=== PATIENT | male | born 1960 | race Caucasian/White ===

== ENCOUNTER → 2022-01-23 08:17 | Outpatient (BNVA) | payer OTHER, SELFPAY | PROVIDERS: PCP Internal Medicine; Visit Provider Nurse Practitioner Family | DX: F07.81 Postconcussional syndrome (principal); G44.309 Post-traumatic headache, unspecified, not intractable | CPT/HCPCS: 99202 ==

== ENCOUNTER → 2022-03-20 15:20 | Outpatient (BNVA) | payer OTHER, SELFPAY | PROVIDERS: PCP Internal Medicine; Visit Provider Nurse Practitioner Family | DX: G44.309 Post-traumatic headache, unspecified, not intractable (principal); G43.009 Migraine without aura, not intractable, without status migrainosus; F07.81 Postconcussional syndrome | CPT/HCPCS: 99212 ==

== ENCOUNTER → 2022-06-10 15:18 | Outpatient (BNVA) | payer OTHER, SELFPAY | PROVIDERS: PCP Internal Medicine; Visit Provider Nurse Practitioner Family | DX: G44.309 Post-traumatic headache, unspecified, not intractable (principal); F07.81 Postconcussional syndrome; G43.009 Migraine without aura, not intractable, without status migrainosus; Z79.899 Other long term (current) drug therapy | CPT/HCPCS: 99212 ==

== ENCOUNTER 2022-10-06 08:01 | Outpatient (AMB) | payer OTHER, SELFPAY ==
--- NOTE | 2022-10-06 08:03 | A.OFFVIS_ITS ---
Intake Vital Signs 10/06/22 08:07 Weight 220 lb 8 oz BP 138/72 Blood Pressure Location Rt brachial Position Sitting Pulse 71 Pulse Source Pulse Oximeter Pulse Oximetry (%) 97 Oxygen Delivery Method Room Air Intake Visit Reasons: 4m follow up headaches - Confirmed Intake Note: F/U Headaches, also still has the dizzinezz Sound Designer Required: No Allergies acetaminophen [From Percocet] Allergy (Intermediate, Verified 10/06/22 08:04) Unknown penicillin V Allergy (Unknown, Verified 10/06/22 08:04) Unknown titanium Allergy (Unknown, Verified 10/06/22 08:04) Unknown oxycodone Adverse Reaction (Intermediate, Verified 10/06/22 08:04) Unknown Medication List - Last Reconciled 10/06/22 by MARY Gonzalez amitriptyline 25 mg PO BEDTIME 30 days atorvastatin 40 mg PO DAILY citalopram 20 mg PO DAILY hydroxyzine HCl 25 mg PO BEDTIME PRN levothyroxine 0 mcg PO losartan 50 mg PO DAILY ubrogepant (Ubrelvy) 50 - 100 mg (0.5 - 1 x 100 mg) PO ONCE PRN 30 days HPI HPI Comments History of Present Illness Details 62-yr-old male presents for f/u visit, accompanied by his . He reports he had a left eye laser surgery d/t worsening left vision- like a curtain closing in from the top and bottom. Then the following day, he completely lost his left vision. He then underwent emergent eye surgery for retinal detachment. He still has left eye bubble placement- states from the left eye vision is still off- like looking through a fun glass. He reports that he is struggling to cope with the changes in his life since the accident. He wonders when his PTSD and postconcussive s/s will resolve. He has been having some jerking limb movements when resting. He has difficulty being driven in the car- becomes anxious/nervous. He is not driving himself- d/t the left eye vision loss. His PT is on hold d/t the eye surgeries. The amitriptyline and ubrelvy is helpful for the headaches [facility] Medical History Anti-cardiolipin antibody positive Anxiety Ascending aorta dilation Depression Dysplastic nevus HLD (hyperlipidemia) Hypothyroidism Papillary thyroid carcinoma TIA (transient ischemic attack) Surgical History H/O eye surgery H/O knee surgery Hx of partial thyroidectomy Hx of repair of rotator cuff Family History Maternal Grandfather Colon cancer Social History (Updated 10/06/22 @ 08:07 by Dahiana Hernandez [facility]) Alcohol intake: current Alcohol intake frequency: 0-2 drinks per day Alcohol type: beer Patient Tobacco Use Status: Never used Tobacco Review of Systems Const All systems reviewed & are unremarkable except as noted in HPI and below Physical Exam Vital Signs: Last Vital Signs Pulse 71 10/06/22 08:07 BP 138/72 10/06/22 08:07 Pulse Ox 97 10/06/22 08:07 Oxygen Delivery Method Room Air 10/06/22 08:07 Const General: cooperative and no acute distress Orientation/consciousness: patient oriented x3 HEENT Head: Yes normocephalic Resp Effort & Inspection: normal respiratory effort and able to speak in complete sentences Neuro Other: Left lateral visual field deficit. Finger-nose (pt's finger to pt's nose)- BUE L > R dysmetria Finger-nose (provider finger to pt's nose)- some dififculty following instructions, left dysmetria. Photophobic. Anxious. Fidgetting bilateral hands, tapping bilateral legs. General: patient oriented x3 and gait normal Motor exam (neuro): 5/5 motor strength present throughout Psych Appearance: grossly normal Mental Status: mental status grossly normal Speech and movement: Clear speech present Attitude: cooperative Assessment & Plan Assessment & Plan (1) Postconcussive syndrome: Comment: headaches, dizziness, tinnitus, sleep difficulties, cognitive difficulties, mood changes. Code(s): F07.81 - Postconcussional syndrome (2) PTSD (post-traumatic stress disorder): Code(s): F43.10 - Post-traumatic stress disorder, unspecified (3) Headache, post-traumatic: Code(s): G44.309 - Post-traumatic headache, unspecified, not intractable (4) Migraine without aura: Comment: post-traumatic Code(s): G43.009 - Migraine without aura, not intractable, without status migrainosus (5) Vision loss, left eye: Code(s): H54.62 - Unqualified visual loss, left eye, normal vision right eye Plan For overall postconcussive headache management: Pt is advised to start psychotherapy- to help pt adjust to post-concussive syndrome, role transition, recent eye surgeries/vision loss. F/u w/ Dr Zhong as scheduled. F/u w/ ophthalmology as scheduled. For acute postconcussive headache treatment: May use prn Tylenol or NSAID. Continue Ubrelvy 100mg at onset of headache, may repeat in 2 hrs (max 200mg/day). May take w/ Tylenol 1000mg prn or Ibuprofen 400-600mg prn. Previous acute migraine medication trials: None Acute migraine medication contraindications: Triptans d/t HTN, post-op ? For postconcussive headache prevention medication: Continue Amitriptyline 25mg mg qhs. Previous migraine prevention medication trials: No other Migraine prevention medication contraindications: None f/u in 3 months or sooner prn. Orders: Referrals Psychology Referral F07.81 - Postconcussional syndrome, F43.10 - Post-traumatic stress disorder, unspecified Coding Level of Care Code Est Pt Level 4 (04739) Diagnoses Postconcussive syndrome F07.81 PTSD (post-traumatic stress disorder) F43.10 Headache, post-traumatic G44.309 Migraine without aura G43.009 Vision loss, left eye H54.62
[2022-10-06 08:07] VITALS: BP 138/72; PULSE 71; O2SAT 97
== END 2022-10-06 08:58 | disposition home or self-care (01) ==
PROVIDERS: Visit Provider Nurse Practitioner Family
DX: F43.10 Post-traumatic stress disorder, unspecified (principal); F07.81 Postconcussional syndrome; G44.309 Post-traumatic headache, unspecified, not intractable; H54.62 Unqualified visual loss, left eye, normal vision right eye
CPT/HCPCS: 99214

== ENCOUNTER → 2022-10-06 08:01 | Outpatient (BNVA) | payer OTHER, SELFPAY | PROVIDERS: Visit Provider Nurse Practitioner Family | DX: F07.81 Postconcussional syndrome (principal); F43.10 Post-traumatic stress disorder, unspecified; G44.309 Post-traumatic headache, unspecified, not intractable; G43.009 Migraine without aura, not intractable, without status migrainosus; H54.62 Unqualified visual loss, left eye, normal vision right eye; Z79.899 Other long term (current) drug therapy | CPT/HCPCS: 99212 ==

== ENCOUNTER 2023-01-18 13:51 | Outpatient (AMB) | payer OTHER, SELFPAY ==
--- NOTE | 2023-01-18 13:52 | MHC.OFFVIS ---
Intake Vital Signs 01/18/23 13:54 Height 5 ft 10 in Weight 214 lb BMI 30.7 BP 136/80 Blood Pressure Location Lt brachial Pulse 60 Pulse Source Pulse Oximeter Pulse Oximetry (%) 98 Oxygen Delivery Method Room Air Intake Visit Reasons: 3m follow up headaches/ LVM Allergies acetaminophen [From Percocet] Allergy (Intermediate, Verified 01/18/23 13:57) Unknown penicillin V Allergy (Unknown, Verified 01/18/23 13:57) Unknown titanium Allergy (Unknown, Verified 01/18/23 13:57) Unknown oxycodone Adverse Reaction (Intermediate, Verified 01/18/23 13:57) Unknown Medication List - Last Reconciled 01/18/23 by MARY Gonzalez amitriptyline 25 mg PO BEDTIME 30 days atorvastatin 40 mg PO DAILY citalopram 20 mg PO DAILY hydroxyzine HCl 25 mg PO BEDTIME PRN levothyroxine 0 mcg PO losartan 50 mg PO DAILY ubrogepant (Ubrelvy) 50 - 100 mg (0.5 - 1 x 100 mg) PO ONCE PRN 30 days HPI HPI Comments History of Present Illness Details 62-yr-old male presents for f/u visit, accompanied by his . He has had a lumbar injection in early Dec- w/ Dr Zhong, which has been helpful for low back pain radiating into anterior LLE. He is doing PT. Having to manage his vision issues with his PT exercises- He can still feel a bit of dizziness if he bends over and gets back up quickly. He states that the headaches now occur at different times of the day- now can wake up with a headache. He has a migraine headache almost every day- in varying intensities. He is taking Amitriptyline every day- makes him groggy in the am. The Ubrelvy helps but makes him a bit sleepy. Denies history of constipation. He can be dizzy and lightheaded. He states Dr Ng has told him that his left eye vision loss is permanent. He is driving short distances- mostly on local roads. However he cannot drive longer distances, and when he is a passenger in the car, he has increased anxiety. [facility] Medical History Anti-cardiolipin antibody positive Dysplastic nevus Anxiety Papillary thyroid carcinoma Hypothyroidism Ascending aorta dilation TIA (transient ischemic attack) HLD (hyperlipidemia) Depression Surgical History H/O eye surgery Hx of repair of rotator cuff H/O knee surgery Hx of partial thyroidectomy Family History Maternal Grandfather Colon cancer Social History Alcohol intake: current Alcohol intake frequency: 0-2 drinks per day Alcohol type: beer Patient Tobacco Use Status: Never used Tobacco Review of Systems Const All systems reviewed & are unremarkable except as noted in HPI and below Physical Exam Vital Signs: Last Vital Signs Pulse 60 01/18/23 13:54 BP 136/80 01/18/23 13:54 Pulse Ox 98 01/18/23 13:54 Oxygen Delivery Method Room Air 01/18/23 13:54 BMI result Body Mass Index 30.7 Const General: cooperative and no acute distress Orientation/consciousness: patient oriented x3 HEENT Head: Yes normocephalic Resp Effort & Inspection: normal respiratory effort and able to speak in complete sentences Neuro Other: Left eye visual loss General: patient oriented x3 and gait normal Cognition (Neuro): normal cognition Motor exam (neuro): 5/5 motor strength present throughout Psych Appearance: grossly normal Mental Status: mental status grossly normal Speech and movement: Normal speech and movement present Affect: Anxious affect present Attitude: cooperative Thought process: Normal thought process present Thought content: Normal thought content present Insight: Good insight present (Psych) Judgement: Good judgement present (Psych) Assessment & Plan Assessment & Plan (1) Postconcussive syndrome: Comment: headaches, dizziness, tinnitus, sleep difficulties, cognitive difficulties, mood changes. Code(s): F07.81 - Postconcussional syndrome (2) Headache, post-traumatic: Code(s): G44.309 - Post-traumatic headache, unspecified, not intractable (3) Migraine without aura: Comment: post-traumatic Code(s): G43.009 - Migraine without aura, not intractable, without status migrainosus (4) PTSD (post-traumatic stress disorder): Code(s): F43.10 - Post-traumatic stress disorder, unspecified (5) Vision loss, left eye: Code(s): H54.62 - Unqualified visual loss, left eye, normal vision right eye Plan For overall postconcussion management: Will f/u on referral for psychotherapy- to help pt adjust to post-concussive syndrome, role transition, vision loss. Trial low dose Lorazapam 0.5mg tab- 1/2 - 1 tab bid prn anxiety, especially when he needs to be a passenger in a car for longer distances. F/u w/ Dr Zhong as scheduled. F/u w/ ophthalmology as scheduled. ? For acute postconcussive headache treatment: May use prn Tylenol or NSAID. Continue Ubrelvy 100mg at onset of headache, may repeat in 2 hrs (max 200mg/day). May take w/ Tylenol 1000mg prn or Ibuprofen 400-600mg prn. Previous acute migraine medication trials: None Acute migraine medication contraindications: Triptans d/t HTN, post-op ? For postconcussive headache prevention medication: Continue Amitriptyline 25mg mg qhs. Start Aimovig 140mg sc q month- to alleviate daily attacks. Previous migraine prevention medication trials: No other Migraine prevention medication contraindications: BBs as pt is already on Losartan and normotensive w/ episodes of dizziness and lightheadedness. ? f/u in 3 months or sooner prn. Medications: New lorazepam 0.25 - 0.5 mg (0.5 - 1 x 0.5 mg) PO BID PRN 15 tabs 1RF anxiety 30 days erenumab-aooe (Aimovig Autoinjector) 140 mg subcut ONCE 1 mL 6RF 30 days Coding Level of Care Code Est Pt Level 4 (86965) Diagnoses Postconcussive syndrome F07.81 Headache, post-traumatic G44.309 Migraine without aura G43.009 PTSD (post-traumatic stress disorder) F43.10 Vision loss, left eye H54.62
[2023-01-18 13:54] VITALS: BP 136/80; PULSE 60; O2SAT 98; BMI 30.7
== END 2023-01-18 15:02 | disposition home or self-care (01) ==
PROVIDERS: PCP Internal Medicine; Visit Provider Nurse Practitioner Family
DX: H54.62 Unqualified visual loss, left eye, normal vision right eye (principal); F43.10 Post-traumatic stress disorder, unspecified; F07.81 Postconcussional syndrome; G44.309 Post-traumatic headache, unspecified, not intractable
CPT/HCPCS: 99214

== ENCOUNTER → 2023-01-18 13:51 | Outpatient (BNVA) | payer OTHER, SELFPAY | PROVIDERS: PCP Internal Medicine; Visit Provider Nurse Practitioner Family | DX: F07.81 Postconcussional syndrome (principal); G44.309 Post-traumatic headache, unspecified, not intractable; G43.009 Migraine without aura, not intractable, without status migrainosus; F43.10 Post-traumatic stress disorder, unspecified; H54.62 Unqualified visual loss, left eye, normal vision right eye; Z79.899 Other long term (current) drug therapy | CPT/HCPCS: 99212 ==

== ENCOUNTER 2023-04-22 08:05 | Outpatient (AMB) | payer OTHER, SELFPAY ==
--- NOTE | 2023-04-22 08:24 | A.OFFVIS_ITS ---
Intake Vital Signs 04/22/23 08:29 Height 5 ft 10 in BP 140/82 H Blood Pressure Location Rt brachial Position Sitting Pulse 80 Pulse Source Pulse Oximeter Pulse Oximetry (%) 98 Oxygen Delivery Method Room Air Intake Visit Reasons: 3 mo f/u -Headaches-LVM Intake Note: Patient presents for headaches,dizziness and PTSD. Patient feeling the same no changes. Allergies acetaminophen [From Percocet] Allergy (Intermediate, Verified 04/22/23 08:29) Unknown penicillin V Allergy (Unknown, Verified 04/22/23 08:29) Unknown titanium Allergy (Unknown, Verified 04/22/23 08:29) Unknown oxycodone Adverse Reaction (Intermediate, Verified 04/22/23 08:29) Unknown HPI HPI Comments History of Present Illness Details 62-yr-old male presents for f/u visit. Pt reports he underwent another left eye surgery (his 5th one)- in hopes it would help w/ his depth perception difficulties and left lateral visual field distortion/loss. He was given glasses are not helping his left eye symptoms at all, but is helping with his right eye vision- though still has the post-injury right eye floater. He is using the prn Lorazepam when in the car- helps some. This is all still frustrating. He has not seen psychologist yet- he is unaware who his work comp will cover. The previous lumbar injection was helpful for LLE pain and left knee giving out, however his hips are misaligned and low back can be sore. He was advised to try a small SI belt which he feels is helping. He is scheduled for an echocardiogram d/t recent abnormal EKG done for having episodes of thumping/heart heart beat. He is f/b Dr [facility] site. Last week, he had a chest cold. The coughing caused transient room spinning dizziness. The dizziness has resolved since the cold resolved. The coughing also triggered a quick sharp, cold running pain in the back of his head- this also stopped when the cold stopped. He is waking up 2-3 times a night. His tinnitus makes it hard to fall asleep. Can be tired during the day, takes an afternoon nap. Having daily headache and dizziness/lightheadedness. He uses Ubrelvy 1/2 tab and Tylenol- which helped for more bothersome headaches. Using Amitriptyline 25mg qhs. Has not started Aimovig - was not covered. Taking Cannabis gummies qhs for sleep. Baseline headache characteristics: Severe, Left frontal pounding pain, a/w nausea, activity intolerance, sounds of a lawnmower/jet in his head, feels needles piercing in left neck and back of left side of head. No focal weakness. [facility] Medical History Anti-cardiolipin antibody positive Dysplastic nevus Anxiety Papillary thyroid carcinoma Hypothyroidism Ascending aorta dilation TIA (transient ischemic attack) HLD (hyperlipidemia) Depression Surgical History H/O eye surgery Hx of repair of rotator cuff H/O knee surgery Hx of partial thyroidectomy Family History Maternal Grandfather Colon cancer Social History Alcohol intake: current Alcohol intake frequency: 0-2 drinks per day Alcohol type: beer Patient Tobacco Use Status: Never used Tobacco Physical Exam Vital Signs: Last Vital Signs Pulse 80 04/22/23 08:29 BP 140/82 H 04/22/23 08:29 Pulse Ox 98 04/22/23 08:29 Oxygen Delivery Method Room Air 04/22/23 08:29 Const General: cooperative and no acute distress Orientation/consciousness: patient oriented x3 Resp Effort & Inspection: normal respiratory effort and able to speak in complete sentences Neuro Other: Left eye visual loss General: patient oriented x3 Cranial nerves: Yes CN's II-XII intact bilaterally Cognition (Neuro): normal cognition Psych Appearance: grossly normal Mental Status: mental status grossly normal Speech and movement: Normal speech and movement present Affect: Anxious affect present Attitude: cooperative Assessment & Plan Assessment & Plan (1) Postconcussive syndrome: Comment: headaches, dizziness, tinnitus, sleep difficulties, cognitive difficulties, mood changes. Code(s): F07.81 - Postconcussional syndrome (2) Headache, post-traumatic: Code(s): G44.309 - Post-traumatic headache, unspecified, not intractable (3) Migraine without aura: Comment: post-traumatic Code(s): G43.009 - Migraine without aura, not intractable, without status migrainosus (4) PTSD (post-traumatic stress disorder): Code(s): F43.10 - Post-traumatic stress disorder, unspecified (5) Vision loss, left eye: Code(s): H54.62 - Unqualified visual loss, left eye, normal vision right eye Plan Will reach out to Dr Acevedo- ? if pt would be a candidate for vestibular/eye tx either through a PT who specializes in vestibular tx or television schedule coordinator- such as [facility]. For overall postconcussion management: Will f/u on referral for psychotherapy- to help pt adjust to post-concussive syndrome, role transition, vision loss. Trial low dose Lorazapam 0.5mg tab- 1/2 - 1 tab bid prn anxiety, especially when he needs to be a passenger in a car for longer distances. F/u w/ Dr Zhong as scheduled. F/u w/ ophthalmology as scheduled. ? For acute postconcussive headache treatment: May use prn Tylenol or NSAID. Continue Ubrelvy 100mg at onset of headache, may repeat in 2 hrs (max 200mg/day). May take w/ Tylenol 1000mg prn or Ibuprofen 400-600mg prn. Previous acute migraine medication trials: None Acute migraine medication contraindications: Triptans d/t HTN, post-op ? For postconcussive migraine headache prevention medication: Continue Amitriptyline 25mg mg qhs. Again start Aimovig 140mg sc q month- to alleviate daily attacks- will f/u on this. Previous migraine prevention medication trials: No other Migraine prevention medication contraindications: BBs as pt is already on Losartan and normotensive w/ episodes of dizziness and lightheadedness. ? f/u in 3 months or sooner prn. Coding Level of Care Code Est Pt Level 4 (98137) Diagnoses Postconcussive syndrome F07.81 Headache, post-traumatic G44.309 Migraine without aura G43.009 PTSD (post-traumatic stress disorder) F43.10 Vision loss, left eye H54.62
[2023-04-22 08:29] VITALS: BP 140/82; PULSE 80; O2SAT 98
== END 2023-04-22 09:45 | disposition home or self-care (01) ==
PROVIDERS: PCP Internal Medicine; Visit Provider Nurse Practitioner Family
DX: F07.81 Postconcussional syndrome (principal); G44.309 Post-traumatic headache, unspecified, not intractable; F43.10 Post-traumatic stress disorder, unspecified; H54.62 Unqualified visual loss, left eye, normal vision right eye
CPT/HCPCS: 99214

== ENCOUNTER → 2023-04-22 08:05 | Outpatient (BNVA) | payer OTHER, SELFPAY | PROVIDERS: PCP Internal Medicine; Visit Provider Nurse Practitioner Family | DX: F07.81 Postconcussional syndrome (principal); G44.309 Post-traumatic headache, unspecified, not intractable; G43.009 Migraine without aura, not intractable, without status migrainosus; F43.10 Post-traumatic stress disorder, unspecified; H54.62 Unqualified visual loss, left eye, normal vision right eye; Z79.899 Other long term (current) drug therapy | CPT/HCPCS: 99212 ==

== ENCOUNTER 2023-08-18 10:53 | Outpatient (AMB) | payer OTHER, SELFPAY ==
--- NOTE | 2023-08-18 10:55 | MHC.OFFVIS ---
Vital Signs 08/18/23 11:02 Height 5 ft 10 in Weight 213 lb 8 oz BMI 30.6 BP 134/80 Blood Pressure Location Rt brachial Position Sitting Pulse 66 Pulse Source Pulse Oximeter Pulse Oximetry (%) 95 Oxygen Delivery Method Room Air Intake Visit Reasons: 3 mo f/u -Headaches-LVM Intake Note: Patient presents for 3 months f/u. still getting headaches and dizziness Allergies acetaminophen [From Percocet] Allergy (Intermediate, Verified 04/22/23 08:29) Unknown penicillin V Allergy (Unknown, Verified 04/22/23 08:29) Unknown titanium Allergy (Unknown, Verified 04/22/23 08:29) Unknown oxycodone Adverse Reaction (Intermediate, Verified 04/22/23 08:29) Unknown HPI Comments Details: 63-yr-old male presents for f/u visit. Pt denies any significant interval medical changes. Pt reports he was trying to read more on his computer- however this triggers a headache- like little spikes in his right bahai f/b dizziness. He will have a headache if he stands up too quick, he will have headache and dizziness. He is not having the middle of the night headaches as much. Ubrelvy is still helpful- uses prn. Work comp did not approve Aimovig. He did see his eye doctor, was given readers, which helps. However, he still finds he is only able to read online for about 10 minutes before a headache is triggered. A book is easier to read. Reading overall makes him feel tired/sluggish. His life science research assistant is going to try to adjust his thyroid med to see if that helps. He is still using the SI belt which is helping his back pain. Still has difficulty w/ depth perception when walking on uneven or rough surfaces. He notices that he is not as sharp - finds that he is misspelling and that his math skills are worse. He is trying to read more about strategies to optimize his PTSD s/s- trying to walk away when irritated. Sometimes when he is laying down at night, he will feel a body jolt. He did have a full cardiac work-up earlier this year- which was normal. [facility] Medical History Anti-cardiolipin antibody positive Dysplastic nevus Anxiety Papillary thyroid carcinoma Hypothyroidism Ascending aorta dilation TIA (transient ischemic attack) HLD (hyperlipidemia) Depression Surgical History H/O eye surgery Hx of repair of rotator cuff H/O knee surgery Hx of partial thyroidectomy Family History Maternal Grandfather Colon cancer Social History Alcohol intake: current Alcohol intake frequency: 0-2 drinks per day Alcohol type: beer Patient Tobacco Use Status: Never used Tobacco Physical Exam Vital Signs: Last Vital Signs Pulse 66 08/18/23 11:02 BP 134/80 08/18/23 11:02 Pulse Ox 95 08/18/23 11:02 Oxygen Delivery Method Room Air 08/18/23 11:02 BMI result Body Mass Index 30.6 Const General: cooperative and no acute distress Orientation/consciousness: patient oriented x3 Resp Effort & Inspection: normal respiratory effort and able to speak in complete sentences Neuro Other: Photophobic- reduced w/ application of [employer]ra[employer]s FL-Pro FL-41 light blocking therapeutic glasses. Left peripheral vision deficit General: patient oriented x3 Cognition (Neuro): normal cognition Psych Other: Tapping bilateral legs Appearance: grossly normal Mental Status: mental status grossly normal Speech and movement: Clear speech present Affect: normal affect Attitude: cooperative Assessment & Plan Assessment & Plan (1) Postconcussive syndrome: Comment: headaches, dizziness, tinnitus, sleep difficulties, cognitive difficulties, mood changes. Code(s): F07.81 - Postconcussional syndrome Category: Medical (2) Headache, post-traumatic: Code(s): G44.309 - Post-traumatic headache, unspecified, not intractable Category: Medical (3) Migraine without aura: Comment: post-traumatic Code(s): G43.009 - Migraine without aura, not intractable, without status migrainosus Category: Medical (4) PTSD (post-traumatic stress disorder): Code(s): F43.10 - Post-traumatic stress disorder, unspecified Category: Medical (5) Vision loss, left eye: Code(s): H54.62 - Unqualified visual loss, left eye, normal vision right eye Category: Medical Plan Dr Acevedo did not feel pt would be a candidate for vestibular/eye tx. Pt would benefit from wearing FL-41 light blocking therapeutic glasses, such as TheraSpecs FL-Pro FL-41 to improve pt's ability to read and tolertae lights better/longer. ? For overall postconcussion management: Will monitor mood. If worsens- will refer to [facility] [place] [place] psychiatry. Lorazapam 0.5mg tab- 1/2 - 1 tab bid prn anxiety, especially when he needs to be a passenger in a car for longer distances. F/u w/ Dr Zhong prn- pt states he s not actively seeing PS&[facility] anymore. . F/u w/ ophthalmology as scheduled. ? For acute postconcussive headache treatment: May use prn Tylenol or NSAID. Continue Ubrelvy 100mg at onset of headache, may repeat in 2 hrs (max 200mg/day). May take w/ Tylenol 1000mg prn or Ibuprofen 400-600mg prn. Previous acute migraine medication trials: None Acute migraine medication contraindications: Triptans d/t HTN, post-op ? For postconcussive migraine headache prevention medication: Continue Amitriptyline 25mg mg qhs. Stop Aimovig 140mg sc q month- not covered- pt is hesitant to add additional meds at this time. Previous migraine prevention medication trials: No other Migraine prevention medication contraindications: BBs as pt is already on Losartan and normotensive w/ episodes of dizziness and lightheadedness. ? f/u in 6 months or sooner prn. Medications: Refilled ubrogepant (Ubrelvy) take at onset of migraine, may repeat in 2hrs (may take w/ Ibuprofen) 50 - 100 mg (0.5 - 1 x 100 mg) PO ONCE 30 days PRN 16 tabs 6RF migraine headache F07.81 - Postconcussional syndrome, G43.009 - Migraine without aura, not intractable, without status migrainosus Coding Level of Care Code Est Pt Level 4 (63925) Diagnoses Postconcussive syndrome F07.81 Headache, post-traumatic G44.309 Migraine without aura G43.009 PTSD (post-traumatic stress disorder) F43.10 Vision loss, left eye H54.62
[2023-08-18 11:02] VITALS: BP 134/80; PULSE 66; O2SAT 95; BMI 30.6
== END 2023-08-18 12:00 | disposition home or self-care (01) ==
PROVIDERS: PCP Internal Medicine; Visit Provider Nurse Practitioner Family
DX: F07.81 Postconcussional syndrome (principal); G44.309 Post-traumatic headache, unspecified, not intractable; G43.009 Migraine without aura, not intractable, without status migrainosus; F43.10 Post-traumatic stress disorder, unspecified; H54.62 Unqualified visual loss, left eye, normal vision right eye
CPT/HCPCS: 99214

== ENCOUNTER → 2023-08-18 10:53 | Outpatient (BNVA) | payer OTHER, SELFPAY | PROVIDERS: PCP Internal Medicine; Visit Provider Nurse Practitioner Family | DX: F07.81 Postconcussional syndrome (principal); G44.309 Post-traumatic headache, unspecified, not intractable; G43.009 Migraine without aura, not intractable, without status migrainosus; F43.10 Post-traumatic stress disorder, unspecified; H54.62 Unqualified visual loss, left eye, normal vision right eye; Z79.899 Other long term (current) drug therapy | CPT/HCPCS: 99212 ==

== ENCOUNTER → 2024-03-17 11:28 | Outpatient (BNVA) | payer OTHER, SELFPAY | PROVIDERS: PCP Internal Medicine; Visit Provider Nurse Practitioner Family | DX: F07.81 Postconcussional syndrome (principal); R42 Dizziness and giddiness; H93.19 Tinnitus, unspecified ear; G44.309 Post-traumatic headache, unspecified, not intractable; G43.009 Migraine without aura, not intractable, without status migrainosus; F43.10 Post-traumatic stress disorder, unspecified; H54.62 Unqualified visual loss, left eye, normal vision right eye | CPT/HCPCS: 99212 ==

== ENCOUNTER 2024-04-02 13:25 | Outpatient (REF) | payer OTHER, SELFPAY ==
--- NOTE | ~2024-04-02 | MR_ITS ---
CLINICAL HISTORY: R42 - Dizziness and giddiness MR Brain and CPA cisterns with and without gadolinium Comparison: None Findings: No restricted diffusion. No intracranial mass or hemorrhage. No midline shift. No hydrocephalus. 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 Mild dolichoectatic basilar artery mildly flattening the opposing aspect of the brainstem. Unremarkable appearance of the CPA cisterns and inner ear structures. Left cataract surgery. Small polyps or retention cysts in some of the paranasal sinuses. No focal bone lesion. Abnormal enhancing lesion seen. IMPRESSION: No abnormal enhancement. Unremarkable appearance of the CPA cisterns and inner ear structures. 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 Mild dolichoectatic basilar artery mildly flattening the opposing aspect of the brainstem. This document has been electronically signed by: Martina Seay MD on 04/04/2024 11:52:06
--- OUTSIDE RECORDS SUMMARY | 2024-04-02 13:28 | XMS_ITS | Clinical Summary ---
Author Organization [facility] Address [address] [place] [address] Care Team Providers Care Lab Support Service Tech Name Role Phone Talisha Noble MD Primary Care Provider [phone] Allergies Active Allergy Reactions Criticality Noted Date Comments Penicillins 04/10/2020 Oxycodone-Acetaminophen 04/10/2020 Titanium 04/10/2020 Medications Medication Sig Dispensed Refills Start Date End Date Status LORazepam (ATIVAN) 0.5 MG tablet TAKE 1 TABLET BY MOUTH ONCE NEEDED FOR ANXIETY PRIOR TO BIOPSY 0 03/05/2020 Active omeprazole (PriLOSEC OTC) 20 MG tablet Take 1 tablet (20 mg total) by mouth. 0 Active Lycopene 25 MG TABS Take by mouth. 0 A ctive B Pmzqadf-Zjqnew-FU (B COMPLETE) TABS Take by mouth. 0 Active levothyroxine (SYNTHROID) tablet 175 mcg TAKE 1 TABLET BY MOUTH ONCE A DAY FOR 30 DAYS, 0 09/24/2020 Active hydrOXYzine (ATARAX) 25 MG tablet Take 1 tablet (25 mg total) by mouth. 0 Active citalopram (CeleXA) 20 MG tablet Take 1 tablet (20 mg total) by mouth daily. 0 Active pregabalin (LYRICA) 75 MG capsule Take 1 capsule (75 mg total) by mouth 2 (two) times a day. 0 Active losartan (COZAAR) tablet 50 mg Take 1 tablet (50 mg total) by mouth daily. 0 Active atorvastatin (LIPITOR) tablet 40 mg Take 1 tablet (40 mg total) by mouth daily. 0 Active Meloxicam 7.5 MG TBDP Take by mouth. 0 Active Ubrogepant (Ubrelvy) 100 MG TABS Take by mouth. 0 Active Active Problems Problem Noted Date Diagnosed Date Elevated PSA 07/07/2021 Cyst of prostate 03/10/2021 Weight loss 10/30/2020 Lower abdominal pain 10/30/2020 Anti-cardiolipin antibody positive 04/29/[address] scan, chest 04/29/2020 Thyroid cancer 04/10/2020 Papillary thyroid carcinoma 04/10/2020 Cancer Staging:Pathologic stage from 05/30/2020:Stage II(pT1b, pN1a, cM0, Age at diagnosis: >= 55 years) - Signed by Jeanine Hauser MD on 07/08/2020 Anxiety about health 04/10/2020 Social History Tobacco Use Types Packs/Day Years Used Date Smoking Tobacco: Never Smokeless Tobacco: Never Alcohol Use Standard Drinks/Week Comments Yes 0 (1 standard drink = 0.6 oz pur e alcohol) Occasionally Sex and Gender Information Value Date Recorded Sex Assigned at Not on file Gender Identity Not on file Sexual Orientation Not on file Job Start Date Occupation Industry Not on file Not on file Not on file Last Filed Vital Signs Vital Sign Reading Time Taken Comments Blood Pressure 143/77 11/13/2022 10:15 AM EDT Pulse 72 11/13/2022 10:15 AM EDT Temperature 36.9 ??C (98.4 ??F) 11/13/2022 10:15 AM E DT Respiratory Rate - - Oxygen Saturation 98% 11/13/2022 10:15 AM EDT Inhaled Oxygen Concentration - - Weight 99.2 kg (218 lb 9.6 oz) 11/13/2022 10:15 AM EDT Height 172.7 cm (5' 8 ) 11/13/2022 10:15 AM EDT Body Mass Index 33.24 11/13/2022 10:15 AM EDT Plan of Treatment Health Maintenance Due Date Last Done Comments Hepatitis C Screening 1960 COVID-19 Vaccine (#1) 1965 Pneumococcal Vaccine (1 of 2 - PCV) 1966 Depression Screening 1972 BMI Counseling 1978 Preventative Health Evaluation 1978 Shingrix-Zoster Vaccine (1 of 2) 05/24/1979 Colon Cancer Screening (Colonoscopy) 2005 DTap / Tdap / Td (2 - Td or Tdap) 09/28/2022 09/28/2012 Influenza Vaccine (#1) 2023 2, 12/28/2019, 12/17/2019, Additional history exists RSV Adult > 60+ Yrs or (1 - 1-dose 75+ series) 05/24/2035 Hepatitis B Vaccines Aged Out No long er eligible based on patient's age to complete this topic RSV Ped < 20 months Aged Out No longe r eligible based on patient's age to complete this topic Care Teams Lab Support Service Tech Relationship Specialty Start Date End Date Talisha Noble MD [address] [phone] PCP - General Internal Medicine 04/10/20
--- OUTSIDE RECORDS SUMMARY | 2024-04-02 13:28 | XMS_ITS | Clinical Summary ---
Author Organization [facility] Address [address] [place] [address] Care Team Providers Care Turner And Former Automatic Name Role Phone Unavailable Primary Care Provider Unavailabl e Allergies Active Allergy Reactions Criticality Noted Date Comments Penicillins Maculopapular Rash 10/07/2011 Medications * This document contains information received from the source organization and may not represent a complete record from that organization. No known medications Social History Tobacco Use Types Packs/Day Years Used Date Smoking Tobacco: Never Smokeless Tobacco: Never Alcohol Use Standard Drinks/Week Comments Not Asked 0 (1 standard drink = 0.6 oz pur e alcohol) Sex and Gender Information Value Date Recorded Sex Assigned at Not on file Legal Sex Male 1:57 AM EDT Gender Identity Not on file Sexual Orientation Not on file Last Filed Vital Signs Vital Sign Reading Time Taken Comments Blood Pressure 117/72 10/07/2011 12:16 PM EDT Pulse 68 10/07/2011 12:16 PM EDT Temperature - - Respiratory Rate - - Oxygen Saturation - - Inhaled Oxygen Concentration - - Weight 90.3 kg (199 lb) 10/07/2011 12:16 PM EDT Height 180.3 cm (5' 11 ) 10/07/2011 12:16 PM EDT Body Mass Index 27.75 10/07/2011 12:16 PM EDT Plan of Treatment Health Maintenance Due Date Last Done Comments Hepatitis C Screening 1960 DTaP/Tdap/Td (1 - Tdap) 1978 Pneumococcal 50+ years (1 of 1 - PCV) 2010 Zoster (Shingrix) (1 of 2) 2010 COVID-19 Vaccine ( - 2023-2 5 season) 2023 Influenza (#1) 2023 RSV (1 - 1-dose 75+ series) 05/24/2035 HPV Vaccine Aged Out No longer eligi ble based on patient's age to complete this topic Hep A Aged Out No longer eligi ble based on patient's age to complete this topic Hep B Aged Out No longer eligi ble based on patient's age to complete this topic Hib Aged Out No longer eligi ble based on patient's age to complete this topic Meningococcal ACWY Aged Out No longer eligible based on patient's age to complete this topic Zoster (Zostavax) Discontinued
--- OUTSIDE RECORDS SUMMARY | 2024-04-02 13:28 | XMS_ITS | Encounter Summary ---
Author Organization [facility] Address [address] [place] [address] Care Team Providers Care Ribbon Blockmaker Name Role Phone Talisha Noble MD Primary Care Provider [phone] Reason for Referral * Cardiac Stress Testing (Routine) - Pending Review Specialty Diagnoses / Procedures Referred By Contac t Referred To Contact Cardiology Diagnoses Chest pain, unspecified type Shortness of breath Procedures Nuclear stress test with myocardial perfusion DE MYOCARDIAL PERFUSION IMAGING TOMOGRAPHIC MULTI STUDIES AT REST OR STRESS DE MYOCARDIAL PERFUSION IMAGING TOMOGRAPHIC SINGLE STUDY AT REST OR STRESS DE CARDIOVASCULAR STRESS TEST GLOBAL DE CV TMST/BIKE MAX/SUBMAX CONTINUOUS ECG MON/PHARM STRESS SUPVSR ONLY DE CV STRESS TEST/BIKE CONT ECG MON/PHARM STRESS INTERP & REPORT ONLY DE TEST STRESS CARDIOVASCULAR TRACING ONLY Promise Singh MD [address] [place] [address] Dr Nav[address]te [address] [place] [id number] Phone: tel: fax: [facility] Referral ID Status Reason Start Date Expiration Date V isits Requested Visits Authorized [id number] Pending Review 03/31/2024 03/31/2025 3 3 * Imaging (Routine) - Pending Review Specialty Diagnoses / Procedures Referred By Contac t Referred To Contact Cardiology Diagnoses Chest pain, unspecified type Aneurysm of ascending aorta without rupture (CMS/HCC) Procedures Transthoracic echocardiogram (TTE) complete with PRN contrast, bubble, strain, and 3D order panel DE TTE W 2D IMAGE COMPLETE W DOPPLER ECHO & COLOR FLOW DOPPLER ECHO DE YISEL 2D COMPLETE W/CONTRAST OR W & WO CONTRAST WITH DOPPLER Promise Singh MD [address] [place] [address] Dr [address] [place] [address] Phone: tel: fax: [facility] Referral ID Status Reason Start Date Expiration Date V isits Requested Visits Authorized [id number] Pending Review 03/31/2024 03/31/2025 1 1 Reason for Visit * Reason Comments Follow-up Encounter Details Date Type Department Care Team (Late st Contact Info) Description 03/31/2024 9:20 AM EST Office Visit [facility] [address] [place] [phone] Promise Singh MD [address] [place] [address] Dr Navar[address] [place] [address] Hypertension, unspecified type (Primary Dx); Chest pain, unspecified type; Mixed hyperlipidemia; Shortness of breath; Aneurysm of ascending aorta without rupture (CMS/HCC) Social History Tobacco Use Types Packs/Day Years Used Date Smoking Tobacco: Never Smokeless Tobacco: Never Alcohol Use Standard Drinks/Week Comments Yes 2 (1 standard drink = 0.6 oz pur e alcohol) Sex and Gender Information Value Date Recorded Sex Assigned at Male 01/02/2024 9:19 AM EST Legal Sex Male 6:24 PM EST Gender Identity Male 01/02/2024 9:19 AM EST Sexual Orientation Straight 01/02/2024 9: 19 AM EST documented as of this encounter Last Filed Vital Signs Vital Sign Reading Time Taken Comments Blood Pressure 134/96 03/31/2024 8:56 AM EST Pulse 72 03/31/2024 8:56 AM EST Temperature - - Respiratory Rate - - Oxygen Saturation 95% 03/31/2024 8:56 AM EST Inhaled Oxygen Concentration - - Weight 99.8 kg (220 lb) 03/31/2024 8:56 AM EST Height 177.8 cm (5' 10 ) 03/31/2024 8:56 AM EST Body Mass Index 31.57 03/31/2024 8:56 AM EST documented in this encounter Ordered Prescriptions Prescription Sig Dispense Quantity Refills Last Filled Start Date End Date atorvastatin (LIPITOR) 40 mg tablet Take 1 tablet (40 mg total) by mouth 1 (one) time each day. 90 tablet 11 03/31/2024 documented in this encounter Progress Notes * Promise Singh MD - 03/31/2024 9:20 AM EST Images from the original note were not included. [facility] PCP: Talisha Noble MD HPI: History of Present Illness 63 yr. old Male with past medical history significant for TIA in 2016, right upper extremity weakness and slurred speech, papillary carcinoma of the thyroid, mild peripheral vascular disease came here for follow-up visit. Patient had echocardiogram in June 2020 which showed ejection fraction of 60 to 65%. Ascending aortawas 4 cm and transverse aorta was 3.2 cm in size. 30-day ROCT in May 2020 showed normal sinus rhythm with occasional PACs. The patient presents for evaluation of aortic aneurysm, low HDL, dyspnea, lightheadedness, and hypothyroidism. He expresses concern regarding the potential for exercise-induced cardiac complications, given his existing heart condition. He has been avoiding physical activity for the past 3 years due to fear ofweight gain. He is uncertain about the necessity of a stress test, as he may have undergone one in the past. He recalls being informed of an asymmetry in his carotid arteries, with one being smaller than the other, although he is unsure of the specific side. He underwent a physical examination approximately 4 months ago, during which blood tests revealed significantly low HDL levels. His LDL levels were also low, but his physician expressed concern aboutthe excessively low HDL levels. Consequently, his atorvastatin dosage was reduced from 40 mg to 20 mg. He reports experiencing lightheadedness and shortness of breath, particularly when walking briskly.These symptoms have been communicated to his neurologist, who has ordered a brain scan scheduled for the upcoming Wednesday. His retail business manager switched his medication because he was not feeling well and his numbers were not correct. He started Synthroid last month. He has been building up a lot of phlegm in his throat. Supplemental Information He had a TIA. He had an accident back in 2021. MEDICATIONS Current: losartan, atorvastatin, Synthroid, baby aspirin Results Laboratory Studies HDL was low. LDL was low. Imaging Echocardiogram on 05/04/2023 showed normal left ventricular function with ejection fraction of 60 to 65% with normal diastolic function, normal left and right atrial size and normal RV function. There was no valvular abnormality. The aortic root is dilated to 4.2 cm at sinus of Valsalva and ascending aorta at 4.0 cm. Testing EKG is normal. ACTIVE MEDICATIONS: Outpatient Medications Marked as Taking for the 03/31/24 encounter (Office Visit) with Promise Singh MD Medication Sig Dispense Refill aspirin 81 mg EC tablet Take by mouth. atorvastatin (LIPITOR) 40 mg tablet Take 1 tablet (40 mg total) by mouth daily. (Patient taking differently: 0.5 tablets (20 mg total).) B complex tablet Take by mouth. levothyroxine (SYNTHROID, LEVOTHROID) 137 mcg tablet Take 1 tablet (137 mcg total) by mouth 1 (one)time each day before breakfast. losartan (COZAAR) 50 mg tablet Take 1 tablet (50 mg total) by mouth daily. ubrogepant (Ubrelvy) 100 mg tablet Take by mouth. PAST MEDICAL HISTORY: Patient Active Problem List Diagnosis Abnormal CT scan, chest Anti-cardiolipin antibody positive Anxiety about health Cyst of prostate Elevated PSA Lower abdominal pain Thyroid cancer (CMS/HCC) Weight loss ALLERGIES: Allergies Allergen Reactions Oxycodone-Acetaminophen Penicillins Titanium Reaction to wilber placed years ago on the right knee and was subsequently removed FAMILY HISTORY: Family History Problem Relation Name Age of Onset Colon cancer Maternal Grandfather SOCIAL HISTORY: Social History Tobacco Use Smoking status: Never Smokeless tobacco: Never Substance Use Topics Alcohol use: Yes Alcohol/week: 2.0 standard drinks of alcohol REVIEW OF SYSTEM: Constitutional: No appetite Loss, chills, dizziness, fever, night Sweats Eyes: Denies blurred vision, discharge, eye irritation, spots in vision, vision loss Head and Neck: Denies any headache, neck pain Ears, Nose, Mouth, Throat: No issues Cardiovascular: Denies chest pain/pressure, claudication, irregular heart beat, orthopnea, palpitations, syncope Respiratory: Denies cough, hemoptysis, SOB, sputum production, wheezing Gastrointestinal: Denies any abdominal distention, pain, black stools, diarrhea, dysphagia, vomiting Genitourinary: Denies dysuria, flank pain Musculoskeletal: Denies any joint pain or swelling other than mention in HPI Integumentary: Denie any skin rash or ulcer, pruritus Neurological: Denies any abnormal gait or focal weakness, headache, numbness, seizures, slurred speech Psychiatric: Denies any delusions, emotional problems, homicidalideation, suicidal ideation Hematologic: Denies any bleeding tendency, hemorrhage PHYSICAL EXAM: Vitals: 03/31/24 0856 BP: (!) 134/96 BP Location: Left arm Patient Position: Sitting BP Cuff Size: Adult Pulse: 72 SpO2: 95% Weight: 99.8 kg (220 lb) Height: 1.778 m (70 ) Appearance: No Acute Distress, Alert Head Exam: Normocephalic and Atraumatic Eyes: Mild Palor, Sclera Anicteric, PERRL, EOMI Neck: Supple, Non-tender, No carotid bruit, thyromegaly or lymphadenopathy Pulmonary: No Accessory Muscle Use, clear to auscultate bilaterally Cardiovascular: JVD/Rhythm/Heart Sound/Added sound-S1 and S2 regular rate and rhythm, no murmur, nogallop or rub Abdominal Inspection: Normal, Soft, Non-tender, Bowel Sounds Present, No Hepatosplenomegaly Rectal Exam: Deferred Extremity: Peripheral Pulses are palpable and symmetrical, no leg edema Musculoskeletal: No obvious joint pain, swelling or deformity Skin: Skin Color Normal, No rash or visible ulcer on limited examination Hematological: No lymphadenopathy or mass Psychiatry: anxiety +, no delusion EKG: Encounter Date: 03/31/24 ECG 12 lead Result Value Ventricular Rate ECG 72 Atrial Rate 72 P-R Interval 156 QRS Duration 88 Q-T Interval 412 QTc 451 P Wave [place] 41 R [place] 66 T [place] 34 ECG Interpretation Normal sinus rhythm Normal ECG No previous ECGs available *Note: Due to a large number of results and/or encounters for the requested time period, some results have not been displayed. A complete set of results can be found in Results Review. TESTING: No results found for: CBCDIF , BMP , PCTLIPID , TSH , BNP PROBLEM LIST: Hypertension, unspecified type ASSESSMENT/PLAN: Assessment & Plan 1. Aortic aneurysm - Blood pressure well-regulated at 134/96 - EKG results within normal limits - Reassured that physical activities such as walking or biking are permissible - Repeat echocardiogram to monitor aneurysm progression - Contact if echocardiogram indicates an increase in aneurysm size - Schedule another echocardiogram next year if aneurysm remains stable 2. HLD - Advised to maintain a regular exercise regimen - Increase atorvastatin dosage back to 40 mg - Prescription to be sent to [facility] in [facility] 3. Dyspnea - Rule out potential blockages in heart arteries due to history of stroke and low HDL levels - Conduct treadmill stress test to evaluate dyspnea - Contact if stress test yields abnormal results - Follow-up next year if stress test is normal 4. Lightheadedness - Reports of lightheadedness and shortness of breath, particularly when walking briskly - Pt is seeing a neurologist - Brain scan scheduled for upcoming Wednesday 5. Hypothyroidism - Centrifuge Operator switched medication due to incorrect numbers and feeling unwell - Started Synthroid last month - Building up a lot of phlegm in throat I spent 45 minutes for this encounter with the patient, including >50% time spent with direct patient contact for history taking, review of system, physical examination, discussion of the lab and test result and management plan as well as in chart review,indipendent review of imaging along with my own interpretation, documentation and communicating with reffering physician. The [facility] team will continue to co-manage this patient following the plan of care as established by my initial visit and as per AHA guidelines for ongoing management and surveillance of Coronary ArteryDisease, Hyperlipidemia, Hypertension, Vascular Disease, and Aortic Disease This will include medication titration, initiation of appropriate medications and further titration, and diagnostic studiesto manage this disease process. documented in this encounter Plan of Treatment Upcoming Encounters Date Type Department Care Team (Late st Contact Info) Description 04/13/2024 8:00 AM EST Ancillary Procedure [facility] - [address] [place] [address] 06/12/2024 10:00 AM EDT Ancillary Procedure [facility] - [address] [place] [address] 06/30/2024 8:30 AM EDT Office Visit [facility] [place] [address] [place] [phone] Talisha Noble MD [address] [facility] [address] [place] [address] 01/24/2025 10:00 AM EST Office Visit [facility] Oncology [address] [place] [address] Jeanine Zuñiga MD [address] [place] [address] Scheduled Orders Name Type Priority Associated Diagnoses Order Schedule Transthoracic echocardiogram (TTE) complete with PRN contrast, bubble, strain, and 3D order panel Echocardiography Routine Chest pain, unspecified type Aneurysm of ascending aorta without rupture (CMS/HCC) 1 Occurrences starting 03/31/2024 until 03/31/2025 Nuclear stress test with myocardial perfusion Cardiac Nuclear Medicine Routine Chest pain, unspecified type Shortness of breath 1 Occurrences starting 03/31/2024 until 03/31/2025 documented as of this encounter Procedures Procedure Name Priority Date/Time Associated Diagnosis Comments ECG 12-LEAD Routine 03/31/2024 9:05 AM EST Hypertension, unspecified type documented in this encounter Results * ECG 12 lead (03/31/2024 9:05 AM EST) Ventricular Rate ECG 72 BPM GEMUSE Atrial Rate 72 BPM GEMUSE P-R Interval 156 ms GEMUSE QRS Duration 88 ms GEMUSE Q-T Interval 412 ms GEMUSE QTc 451 ms GEMUSE P Wave [place] 41 degrees GEMUSE R [place] 66 degrees GEMUSE T [place] 34 degrees GEMUSE ECG Interpretation Normal sinus rhythm Normal ECG No previous ECGs available Confirmed by PROMISE SINGH ([id number]) on 03/31/2024 9:41:20 AM GEMUSE 03/31/2024 9:05 AM EST 03/31/2024 9:41 AM EST Promise Singh MD ECG ORDERABLES Final Result GEMUSE documented in this encounter Visit Diagnoses Diagnosis Hypertension, unspecified type- Primary Chest pain, unspecified type Mixed hyperlipidemia Shortness of breath Aneurysm of ascending aorta without rupture (CMS/HCC) documented in this encounter Discontinued Medications Medication Sig Discontinue Reason Start Date End Da te atorvastatin (LIPITOR) 40 mg tablet Take 1 tablet (40 mg total) by mouth 1 (one) time each day. Reorder 03/31/2024 citalopram (CeleXA) 20 mg tablet TAKE 1 TABLET BY MOUTH EVERY DAY Therapy completed 02/27/2024 03/31/2024 levothyroxine (SYNTHROID, LEVOTHROID) 137 mcg tablet Therapy completed 09/24/2020 03/31/2024 documented as of this encounter Historical Medications * This list may reflect changes made after this encounter. levothyroxine (SYNTHROID, LEVOTHROID) 137 mcg tablet Take 1 tablet (137 mcg total) by mouth 1 (one) time each day before breakfast. added in this encounter Care Teams Ribbon Blockmaker Relationship Specialty Start Date End Date Talisha Noble MD [address] [place] [phone] PCP - General Internal Medicine 12/29/23 documented as of this encounter
--- OUTSIDE RECORDS SUMMARY | 2024-04-02 13:28 | XMS_ITS | Clinical Summary ---
Author Organization [facility] [place] [address] Phone Care Team Providers Care Sonar Technician Name Role Phone Talisha Noble MD Primary Care Provider [phone] Allergies Active Allergy Reactions Criticality Noted Date Comments Oxycodone-Acetaminophen 04/10/2020 Penicillins 04/10/2020 Titanium 09/28/2012 Reaction to wilber placed years ago on the right knee and was subsequently removed Medications B complex tablet Take by mouth. Active losartan (COZAAR) 50 mg tablet Take 1 tablet (50 mg total) by mouth daily. Active ubrogepant (Ubrelvy) 100 mg tablet Take by mouth. Active aspirin 81 mg EC tablet Take by mouth. Active levothyroxine (SYNTHROID, LEVOTHROID) 137 mcg tablet Take 1 tablet (137 mcg total) by mouth 1 (one) time each day before breakfast. Active atorvastatin (LIPITOR) 40 mg tablet Take 1 tablet (40 mg total) by mouth 1 (one) time each day. 90 tablet 11 5 Active atorvastatin (LIPITOR) 40 mg tablet Take 1 tablet (40 mg total) by mouth 1 (one) time each day. 03/31/19 25 Discontinu ed(Reorder ) levothyroxine (SYNTHROID, LEVOTHROID) 137 mcg tablet 1 03/31/19 25 Discontinu ed(Therapy completed) citalopram (CeleXA) 20 mg tablet TAKE 1 TABLET BY MOUTH EVERY DAY 30 tablet 5 5 03/31/19 25 Discontinu ed(Therapy completed) Active Problems Problem Noted Date Diagnosed Date Cyst of prostate 03/10/2021 Lower abdominal pain 10/30/2020 Weight loss 10/30/[address] scan, chest 04/29/2020 Anti-cardiolipin antibody positive 04/29/2020 Anxiety about health 04/10/2020 Thyroid cancer 04/10/2020 Elevated PSA 01/30/2020 Encounters Date Type Department Care Team Description 03/31/2024 9:20 AM EST Office Visit [facility] Cardiology [facility] Dr Mendoza [facility] Dr Reynolds [address] [place] [phone] Mason Singh MD Hypertension, unspecified type (Primary Dx); Chest pain, unspecified type; Mixed hyperlipidemia; Shortness of breath; Aneurysm of ascending aorta without rupture (CMS/HCC) 01/25/2024 10:00 AM EST Office Visit [facility] Hematology Oncology [address] [place] [phone] Jeanine Zuñiga MD Thyroid cancer (CMS/HCC) (Primary Dx); Anti-cardiolipin antibody positive; Elevated PSA; Weight loss from Last 3 Months Surgical History Surgery Date Site/Laterality Comments KNEE SURGERY 1997 PROCEDURE: HISTORICAL KNEE SURGERY; COMMENT: acl OTHER SURGICAL HISTORY PROCEDURE: ---- OTHER ----; COMMENT: abdominal surgery as an (pyloric stenosis?) COLONOSCOPY 2012 PROCEDURE: MA COLONOSCOPY FLX DX W/COLLJ SPEC WHEN PFRMD; COMMENT: Normal, no polyps. ROTATOR CUFF REPAIR 2014 Right PROCEDURE: HISTORICAL ROTATOR CUFF REPAIR OTHER SURGICAL HISTORY 05/30/2020 Left PROCEDURE: HISTORY OTHER; COMMENT: hemithyroidectomy w/ isthmusectomy Dr. Carranza Medical History Medical History Date Comments Dysplastic nevus 12/08/2012 DX:Dysplastic n evus Papillary thyroid carcinoma (CMS/HCC) 04/10/2020 DX:Papillary thyroid carcino ma (HCC); COMMENT: S/p left hemithyroidectomy w/ isthmusectomy 05/30/20 Dr. Carranza Elevated PSA 01/30/2020 DX:Elevated PSA Thyroid lesion 01/30/2020 DX:Thyroid lesio n TIA (transient ischemic attack) 01/30/2020 DX:TIA (transient ischemic attack); COMMENT: In 2016 Anti-cardiolipin antibody positive 04/29/2020 DX:Anti-cardiolipin antibody positive Anxiety 08/14/2020 DX:Anxiety Family History Medical History Relation Name Comments Colon cancer Maternal Grandfather Relation Name Status Comments Brother 1 Alive Parkinson's Brother 2 Alive Brother 3 Alive Brother 4 Alive Father CVA Maternal Grandfather Mother Alive hip DJD Social History Tobacco Use Types Packs/Day Years Used Date Smoking Tobacco: Never Smokeless Tobacco: Never Tobacco Cessation:Counseling Given: Not Answered Alcohol Use Standard Drinks/Week Comments Yes 2 (1 standard drink = 0.6 oz pur e alcohol) Sex and Gender Information Value Date Recorded Sex Assigned at Male 01/02/2024 9:19 AM EST Legal Sex Male 6:24 PM EST Gender Identity Male 01/02/2024 9:19 AM EST Sexual Orientation Straight 01/02/2024 9: 19 AM EST Obstetrics History Last Filed Vital Signs Vital Sign Reading Time Taken Comments Blood Pressure 134/96 03/31/2024 8:56 AM EST Pulse 72 03/31/2024 8:56 AM EST Temperature 36.6 ??C (97.9 ??F) 01/25/2024 10:[address] Respiratory Rate - - Oxygen Saturation 95% 03/31/2024 8:56 AM EST Inhaled Oxygen Concentration - - Weight 99.8 kg (220 lb) 03/31/2024 8:56 AM EST Height 177.8 cm (5' 10 ) 03/31/2024 8:56 AM EST Body Mass Index 31.57 03/31/2024 8:56 AM EST Plan of Treatment Upcoming Encounters Date Type Department Care Team (Late st Contact Info) Description 04/13/2024 8:00 AM EST Ancillary Procedure [facility] Cardiology [facility] [address] [facility] [address] [place] [address] 06/12/2024 10:00 AM EDT Ancillary Procedure [facility] Cardiology [facility] [address] [facility] [address] [place] [address] 06/30/2024 8:30 AM EDT Office Visit Internal Medicine - [place] [address] [facility] [address] [place] [address] Talisha Noble MD [address] [phone] 01/24/2025 10:00 AM EST Office Visit [facility] Hematology Oncology [address] [place] [address] Jeanine Zuñiga MD [address] [place] [address] Health Maintenance Due Date Last Done Comments Pneumococcal Vaccine: 50+ Years (1 of 2 - PCV) 05/24/1979 Pneumococcal Vaccine: Pediatrics (0 to 5 Years) and At-Risk Patients (6 to 64 Years) (1 of 2 - PCV) 05/24/1979 Zoster Vaccines (1 of 2) 05/24/1979 RSV Immunization Patients 60+ Years Old (1 - Risk 60-74 years 1-dose series) 2020 Colorectal Cancer Screening: Colonoscopy 01/24/2022 Depression Screening 01/24/2022 HIV Screening 01/24/2022 Hepatitis C Screening 01/24/2022 Social Influencers of Health Screening 01/24/2022 DTaP,Tdap,and Td Vaccines (3 - Td or Tdap) 09/28/2022 09/28/2012, 01/04/2006 COVID-19 Vaccine ( season) 2023 02/25/2021, 07/24/2020, 06/26/2020 Hypertension/CHF/CAD Annual BMP Blood Test 12/08/2024 12/09/2023, 12/25/2019, 12/25/2019, Additional history exists Cholesterol Screening (Lipid Panel) 12/08/2028 12/09/2023, 12/25/2019, 12/25/2019 Influenza Vaccine Completed 12/17/2023, , 12/25/2021, Additional history exists HIB Vaccines Aged Out No longer eligi ble based on patient's age to complete this topic HPV Vaccines Aged Out No longer eligi ble based on patient's age to complete this topic Hepatitis A Vaccines Aged Out No long er eligible based on patient's age to complete this topic Hepatitis B Vaccines Aged Out No long er eligible based on patient's age to complete this topic IPV Vaccines Aged Out No longer eligi ble based on patient's age to complete this topic MMR Vaccines Aged Out No longer eligi ble based on patient's age to complete this topic Meningococcal ACWY Vaccine Aged Out N o longer eligible based on patient's age to complete this topic Meningococcal B Vacine Aged Out No lo nger eligible based on patient's age to complete this topic RSV Immunization Patients Under 20 months Aged Out No longer eligible based on patient's age to complete this topic Varicella Vaccines Aged Out No longer eligible based on patient's age to complete this topic Procedures Procedure Name Priority Date/Time Associated Diagnosis Comments ECG 12-LEAD Routine 03/31/2024 9:05 AM EST Hypertension, unspecified type ANNUAL BMP BLOOD TEST Routine 12/25/2019 LIPID PANEL Routine 12/25/2019 from Last 3 Months or Most Recently Relevant to Health Maintenance Results * ECG 12 lead (03/31/2024 9:05 AM EST) Ventricular Rate ECG 72 BPM GEMUSE Atrial Rate 72 BPM GEMUSE P-R Interval 156 ms GEMUSE QRS Duration 88 ms GEMUSE Q-T Interval 412 ms GEMUSE QTc 451 ms GEMUSE P Wave [place] 41 degrees GEMUSE R [place] 66 degrees GEMUSE T [place] 34 degrees GEMUSE ECG Interpretation Normal sinus rhythm Normal ECG No previous ECGs available Confirmed by MASON SINGH ([id number]) on 03/31/2024 9:41:20 AM GEMUSE 03/31/2024 9:05 AM EST 03/31/2024 9:41 AM EST Mason Singh MD ECG ORDERABLES Final Result GEMUSE * Annual BMP Blood Test (12/25/2019) Pathologist [facility] Annual BMP Blood Test abstracted Historical Provider HEALTH MAINTENANCE Final Result * Lipid panel (12/25/2019) Triglycerides 0 mg/dL Comment:no interpretataion, abstracted Cholesterol 0 mg/dL Comment:no interpretataion, abstracted HDL 0 mg/dL Comment:no interpretataion, abstracted LDL Cholesterol 0 mg/dL Comment:no interpretataion, abstracted Blood Venous blood specimen / Unknown us Historical Provider LAB BLOOD ORDERABLES Kate l Result from Last 3 Months or Most Recently Relevant to Health Maintenance Insurance [facility] app[employer] PLAN Care Teams Sonar Technician Relationship Specialty Start Date End Date Talisha Noble MD 175 [facility] [address] [place] [phone] PCP - General Internal Medicine 12/29/23
[2024-04-02] MEDS: gadobutroL 10 ML VIAL IVPUSH (14:26)
== END 2024-04-02 13:26 | disposition home or self-care (01) ==
LOC: HO.MRI 13:25
PROVIDERS: PCP Internal Medicine; Visit Provider Nurse Practitioner Family
DX: H93.19 Tinnitus, unspecified ear (principal); F07.81 Postconcussional syndrome; R42 Dizziness and giddiness
CPT/HCPCS: 70553; A9585

== ENCOUNTER → 2024-04-02 13:33 | Outpatient (BNV) | payer OTHER, SELFPAY | PROVIDERS: PCP Internal Medicine; Visit Provider Radiology Diagnostic Radiology | DX: R42 Dizziness and giddiness (principal) | CPT/HCPCS: 70553 ==

== ENCOUNTER → 2024-04-09 15:13 | Outpatient (BNV) | payer OTHER, SELFPAY | PROVIDERS: PCP Internal Medicine; Visit Provider Radiology Diagnostic Radiology | DX: I63.9 Cerebral infarction, unspecified (principal); G45.0 Vertebro-basilar artery syndrome | CPT/HCPCS: 70544 ==

== ENCOUNTER 2024-04-09 15:14 | Outpatient (REF) | payer OTHER, SELFPAY ==
--- NOTE | ~2024-04-09 | MR_ITS ---
EXAMINATION: MR ANGIOGRAPHY BRAIN WITHOUT CONTRAST CLINICAL INFORMATION: Cerebral infarction COMPARISON: Related to MRI brain dated April 02, 2024. TECHNIQUE: 3-D [id number]. Maximum intensity projections [place]. FINDINGS: Anterior cervical circulation: ICAs: No flow signal gap or abrupt cut off. MCA's: No flow signal gap or abrupt cut off. Bifurcation/trifurcation demonstrated no flow signal irregularity. ACAs: Left A1 hypoplastic. No flow signal gap or abrupt cut off. Anterior communicating artery flow signal is present. Ophthalmic arteries flow signal is present bilaterally. Posterior communicating artery flow signal is absent. Posterior cerebral circulation: V3/V4 segments flow signal is present without flow signal gap or abrupt cut off or intimal flap. Posterior inferior cerebellar arteries flow signal is present. Basilar artery flow signal is present without flow signal gap or intimal flap. Right anterior inferior cerebellar artery flow signal is present in the proximal segment. Left anterior inferior cerebellar artery flow signal is sagittal and present in the proximal segment. Superior cerebellar arteries flow signal is present without abrupt cut off. stone driller: Right demonstrates No flow signal gap or abrupt cut off. Left P2/P3 segment decreased caliber and faint flow signal. MR/MR angio head wo con IMPRESSION: Abnormal left P2/P3 segments suggesting disease/atherosclerosis versus old occlusion. Electronically signed by: Johnnie Macias MD 04/11/2024 07:54 AM EST
--- OUTSIDE RECORDS SUMMARY | 2024-04-09 15:23 | XMS_ITS | Clinical Summary ---
Author Organization [facility] Address [address] [place] [address] Care Team Providers Care Slater Apprentice Name Role Phone Talisha Noble MD Primary Care Provider [phone] Allergies Active Allergy Reactions Criticality Noted Date [...] Take by mouth. 0 A ctive B Xyvqgrx-Foqeqa-SR (B COMPLETE) TABS Take by mouth. 0 [...] age to complete this topic Care Teams Slater Apprentice Relationship Specialty Start Date End Date Talisha Noble MD [address] [phone] PCP - General Internal Medicine 04/10/20
--- OUTSIDE RECORDS SUMMARY | 2024-04-09 15:23 | XMS_ITS | Clinical Summary ---
Author Organization [facility] Address [address] [place] [address] Care Team Providers Care Consumer Affairs Specialist Name Role Phone Unavailable Primary Care Provider [...]
--- OUTSIDE RECORDS SUMMARY | 2024-04-09 15:23 | XMS_ITS | Encounter Summary ---
Author Organization [facility] Address [address] [place] [address] Care Team Providers Care Fund Controller Name Role Phone Talisha Noble MD Primary Care Provider [phone] Reason for Referral * Cardiac Stress Testing (Routine) - Authorized Specialty Diagnoses / Procedures Referred By Fara t Referred To Contact Cardiology Diagnoses Chest pain, unspecified type Shortness of breath Procedures Nuclear stress test with myocardial perfusion SD MYOCARDIAL PERFUSION IMAGING TOMOGRAPHIC MULTI STUDIES AT REST OR STRESS SD MYOCARDIAL PERFUSION IMAGING TOMOGRAPHIC SINGLE STUDY AT REST OR STRESS SD CARDIOVASCULAR STRESS TEST GLOBAL SD CV TMST/BIKE MAX/SUBMAX CONTINUOUS ECG MON/PHARM STRESS SUPVSR ONLY SD CV STRESS TEST/BIKE CONT ECG MON/PHARM STRESS INTERP & REPORT ONLY SD TEST STRESS CARDIOVASCULAR TRACING ONLY Promise Singh MD [address] [place] [address] [place] [address] Phone: tel: fax: [facility] Referral ID Status Reason Start Date Expiration Date V isits Requested Visits Authorized [id number] Authorized 04/04/2024 06/03/2024 1 1 * Imaging (Routine) - Pending Review Specialty Diagnoses / Procedures Referred By Contac t Referred To Contact Cardiology Diagnoses Chest pain, unspecified type Aneurysm of ascending aorta without rupture (CMS/HCC) Procedures Transthoracic echocardiogram (TTE) complete with PRN contrast, bubble, strain, and 3D order panel SD TTE W 2D IMAGE COMPLETE W DOPPLER ECHO & COLOR FLOW DOPPLER ECHO SD YISEL 2D COMPLETE W/CONTRAST OR W & WO CONTRAST WITH DOPPLER Promise Singh MD [address] [place] [address] [place] [address] Phone: tel: fax: [facility] Referral ID Status Reason Start Date Expiration Date V isits Requested Visits Authorized [id number] Pending Review 03/31/2024 03/31/2025 1 1 Reason for Visit * Reason Comments Follow-up Encounter Details Date Type Department Care Team (Late st Contact Info) Description 03/31/2024 9:20 AM EST Office Visit [facility] [address] [place] [address] Dr [address] [place] [address] Promise Singh MD [address] [place] [address] Dr [address] [place] [address] Hypertension, unspecified type (Primary Dx); Chest pain, [...] from the original note were not included. [facility] PCP: Talisha Noble MD HPI: [...] scan scheduled for the upcoming Wednesday. His jacquard loom card changer switched his medication because he was not [...] Q-T Interval 412 QTc 451 P Wave [place] 41 R [place] 66 T [place] 34 ECG Interpretation Normal sinus rhythm Normal [...] mg - Prescription to be sent to [facility] in [facility] 3. Dyspnea - Rule out potential [...] scheduled for upcoming Wednesday 5. Hypothyroidism - Executor Of Estate switched medication due to incorrect numbers and [...] Description 04/13/2024 8:00 AM EST Ancillary Procedure [facility] [address] [place] [address] [place] [address] 06/12/2024 10:00 AM EDT Ancillary Procedure [facility] Cardiology [facility] [address] [place] [address] [place] [address] 06/30/2024 8:30 AM EDT Office Visit Internal Medicine - [place] [address] [facility] [address] [place] [address] Talisha Noble MD 175 [facility] [address] [place] [address] 01/24/2025 10:00 AM EST Office Visit [facility] Hematology Oncology [address] [place] [address] Jeanine Zuñiga MD [address] [place] [address] Scheduled Orders Name Type Priority [...] GEMUSE QTc 451 ms GEMUSE P Wave [place] 41 degrees GEMUSE R [place] 66 degrees GEMUSE T [place] 34 degrees GEMUSE ECG Interpretation Normal sinus [...] breakfast. added in this encounter Care Teams Fund Controller Relationship Specialty Start Date End Date Talisha Noble MD [address] [place] [phone] PCP - General Internal Medicine 12/29/23 documented as of this encounter
[2024-04-09] MEDS: gadobutroL 10 ML VIAL IVPUSH (15:41)
== END 2024-04-09 15:15 | disposition home or self-care (01) ==
LOC: HO.MRI 15:14
PROVIDERS: PCP Internal Medicine; Visit Provider Nurse Practitioner Family
DX: I63.9 Cerebral infarction, unspecified (principal); G45.0 Vertebro-basilar artery syndrome; R42 Dizziness and giddiness; H53.9 Unspecified visual disturbance
CPT/HCPCS: 70544; 70549; A9585

== ENCOUNTER 2024-09-12 11:27 | Outpatient (AMB) | payer OTHER, SELFPAY ==
--- OUTSIDE RECORDS SUMMARY | 2020-01-09 20:00 | XMS_ITS | Continuity of Care Document ---
Author Organization [facility] Address [address] [facility] [place] [address] Phone Care Team Providers Care Passenger Representative Name Role Phone RCM, Rendering Unavailable Unavailable Allergies, Adverse Reactions, Alerts Substance Reaction Status Criticality Penicillins Active No Information Advance Directives Directive Yes / No Effective Date File Name No Information Encounters Encounter Description Practice Location Reason(s) For Visit Diagnoses Date Provider Providers Copied on Encounter [facility], [address] [place], [place], [id number] , [place] tel: [phone] [facility] [place] [place] [facility] Keratoconjunctivitis sicca, not specified as Sjogren's, bilateralAmaurosis fugaxVitreous degeneration, right eyeCortical age-related cataract, bilateralDrusen of optic disc, bilateralMigraine with aura, not intractable, without status migrainosus Dec- 0 [facility] . [address] [place] [address], [address], [place]. tel: [phone] [facility], [facility] [place], [place], [id number] , [place] tel: [phone] [facility] [place] [place] [facility] Migraine with aura, not intractable, without status migrainosusAge-relate d nuclear cataract, bilateralDermatochala sis of unspecified eye, unspecified eyelidKeratoconjuncti vitis sicca, not specified as Sjogren's, bilateralVitreous degeneration, bilateralOther subjective visual disturbances Dec- 0 0 RCM Rendering . [address] [place] [address], [facility], [place]. tel: [phone] [facility], [address] [place], [place], [id number] , [place] tel: [phone] [facility] Dermatochalasis of unspecified eye, unspecified eyelidAge-related nuclear cataract, bilateralVitreous degeneration, bilateral 3-202 0 RCM Rendering . [address] [place] [address], [facility], . tel: [phone] [facility], [address] [place], [place], [id number] , [place] tel: [phone] [facility] Dermatochalasis of unspecified eye, unspecified eyelidVitreous Floaters Opacities Mar-0 6-201 3 RCM Rendering . [address] [place] [address], [facility], . tel: [phone] Family History Family Member Type Diagnosis Age At Onset No Information Payers Payer name Insurance type Covered alliance party ID Authoriza tion(s) No Information Social History Type Description Quantity Date Captured Comments Alcohol Use Details Unknown Caffeine Use Details Unknown Tobacco Use Status Never smoker (Never Smoked) Smoking Status Never smoker (Never Smoked) Non-Smoking Tobacco Use Details : No Details Available : No Details Available Sex Male Chief Complaint And Reason For Visit No Information Reason For Referral Reason For Referral No Information History Of Present Illness Encounter Date Complaint History Of Prese nt Illness No Information Functional Status Date Functional Assessmen t No Information Instructions Date Instruction Additional Infor jillian Impression/Plan Related to Diagn osis Description: Cortical senile cataract of both eyes \nDiagnosis Code: 366.15 Impression/Plan Related to Diagn osis Description: Ocular migraine \nDiagnosis Code: 346.80 Impression/Plan Related to Diagn osis Description: Keratoconjunctivitis sicca of both eyes not due to Sjogren's syndrome \nDiagnosis Code: 370.33 Impression/Plan Related to Diagn osis Description: Amaurosis fugax \nDiagnosis Code: 362.34 Impression/Plan Related to Diagn osis Description: PVD (posterior vitreous detachment), right eye \nDiagnosis Code: 379.21 Impression/Plan Related to Diagn osis Description: Drusen of optic disc, bilateral \nDiagnosis Code: 377.21 Impression/Plan Related to Diagn osis Description: PVD (POSTERIOR VITREOUS DETACHMENT), BOTH EYES \nDiagnosis Code: 379.21 Impression/Plan Related to Diagn osis Description: KERATOCONJUNCTIVITIS SICCA OF BOTH EYES NOT SPECIFIED SJOGREN'S \nDiagnosis Code: 370.33 Impression/Plan Related to Diagn osis Description: Ocular migraine \nDiagnosis Code: 346.80 Impression/Plan Related to Diagn osis Description: Other subjective visual disturbances \nDiagnosis Code: 368.15 Impression/Plan Related to Diagn osis Description: DERMATOCHALASIS \nDiagnosis Code: 374.87 Impression/Plan Related to Diagn osis Description: AGE-RELATED NUCLEAR CATARACT OF BOTH EYES \nDiagnosis Code: 366.16 Impression/Plan Related to Diagn osis Description: DERMATOCHALASIS \nDiagnosis Code: 374.87 Impression/Plan Related to Diagn osis Description: AGE-RELATED NUCLEAR CATARACT OF BOTH EYES \nDiagnosis Code: 366.16 Impression/Plan Related to Diagn osis Description: PVD (POSTERIOR VITREOUS DETACHMENT), BOTH EYES \nDiagnosis Code: 379.21 Impression/Plan Related to Diagn osis Description: OPACITY, VITREOUS NEC OU \nDiagnosis Code: 379.24 Impression/Plan Related to Diagn osis Description: DERMATOCHALASIS \nDiagnosis Code: 374.87 Assessments Type Assessment Date No Information Patient Care Teams Name Effective Dates (start - stop) Status Members No Information
[2024-09-12 11:36] VITALS: BP 142/82; BMI 31.4
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
--- OUTSIDE RECORDS SUMMARY | 2024-09-12 12:41 | XMS_ITS | Clinical Summary ---
Author Organization [facility] Address [address] [place] [address] Care Team Providers Care Extractor Operator Name Role Phone Talisha Noble MD Primary Care Provider [phone] Allergies Active Allergy Reactions Criticality Noted Date [...] Take by mouth. 0 A ctive B Upwtvdw-Jjzvjh-BL (B COMPLETE) TABS Take by mouth. 0 [...] 72 11/13/2022 10:15 AM EDT Temperature 36.9 C (98.4 F) 11/13/2022 10:15 AM EDT Respiratory Rate - - Oxygen Saturation 98% [...] Vaccine (1 of 2 - PCV) 1966 Pneumococcal Vaccine (1 of 2 - PCV) 1966 Depression Screening 1972 BMI Counseling 1978 Preventative Health Evaluation 1978 Shingrix-Zoster Vaccine (1 of 2) 05/24/1979 Colon Cancer Screening (Colonoscopy) 2005 DTap / Tdap / Td (2 - Td or Tdap) 09/28/2022 09/28/2012 Influenza Vaccine (#1) 2024 2, 12/28/2019, 12/17/2019, Additional history exists RSV Adult > 60+ Yrs or (1 - 1-dose 75+ series) 05/24/2035 Hepatitis B Vaccines Aged Out No long er eligible based on patient's age to complete this topic RSV Ped < 20 months Aged Out No longe r eligible based on patient's age to complete this topic Care Teams Extractor Operator Relationship Specialty Start Date End Date Talisha Noble MD [address] [address] PCP - General Internal Medicine 04/10/20
--- OUTSIDE RECORDS SUMMARY | 2024-09-12 12:41 | XMS_ITS | Encounter Summary ---
Author Organization [facility] Address [address] [place] [phone] Phone Care Team Providers Care Landscape Supervisor Name Role Phone Talisha Noble MD Primary Care Provider [phone] Cindy Carranza MD Unavailable [phone] Jeanine Zuñiga MD Unavailable + [phone] Encounter Details Date Type Department Care Team (Late st Contact Info) Description 08/28/2024 Orders Only [facility] [address] [place] [id number] [address] [place] [address] [place] [address] [email or web address] Papillary thyroid carcinoma; Postoperative hypothyroidism Social History Tobacco Use Types Packs/Day Years Used Date Smoking Tobacco: Never Smokeless Tobacco: Never Alcohol Use Standard Drinks/Week Comments Never 0 (1 standard drink = 0.6 oz pur e alcohol) Education Answer Date Recorded Are you interested in more education? Not on reyna e 06/13/2022 Are you concerned about learning? Not on file 06/13/2022 No 06/13/2022 No 06/13/2022 Digital Access Answer Date Recorded No 07/14/2022 No 07/14/2022 Reliable internet access at home? Not on file 07/14/2022 Device with a working camera? Not on file Sex and Gender Information Value Date Recorded Sex Assigned at Not on file Legal Sex Male 11:56 AM EST Gender Identity Not on file Sexual Orientation Not on file documented as of this encounter Plan of Treatment Upcoming Encounters Date Type Department Care Team (Late st Contact Info) Description 03/22/2025 1:00 PM EST Office Visit [facility] [address] [place] [phone] Georgette Amato MD [address] [place] [address] [address] [place] [address] [email or web address] documented as of this encounter Procedures Procedure Name Priority Date/Time Associated Diagnosis Comments THYROGLOBULIN ANTIBODY Routine 2:39 PM EDT Papillary thyroid carcinoma THYROGLOBULIN, TUMOR MARKER Routine 08/28/2024 2:39 PM EDT Papillary thyroid carcinoma TSH WITH REFLEX Routine 08/28/2024 2:38 PM EDT Postoperative hypothyroidism documented in this encounter Results * Thyroglobulin antibody (08/28/2024 2:39 PM EDT) Blood Georgette Amato MD LAB BLOOD ORDERABLES F inal Result Performing Organization Address [facility] Co de Phone Number [address] [address] * Thyroglobulin, Tumor Marker (08/28/2024 2:39 PM EDT) Blood Georgette Amato MD LAB BLOOD ORDERABLES F inal Result Performing Organization Address City/[facility]/ZIP Co de Phone Number [address] [address] * TSH with reflex (08/28/2024 2:38 PM EDT) Blood us Georgette Amato MD LAB BLOOD ORDERABLES F inal Result Performing Organization Address [facility]/ZIP Co de Phone Number [address] [address] documented in this encounter Visit Diagnoses Diagnosis Papillary thyroid carcinoma Postoperative hypothyroidism Postsurgical hypothyroidism documented in this encounter Care Teams Landscape Supervisor Relationship Specialty Start Date End Date Talisha Noble MD 175 [facility] [address] [place] [address] PCP - General 03/18/22 Cindy Carranza MD 175 [facility] [address] [place] [address] General Surgery 06/24/22 Jeanine Zuñiga MD [address] [place] [address] [email or web address] Oncology 06/24/22 documented as of this encounter Additional Source Comments The information contained in this document represents components of the legal health record. It is not the complete legal health record.[facility]
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
--- OUTSIDE RECORDS SUMMARY | 2024-09-12 12:41 | XMS_ITS ---
Author Name [facility] Organization Unknown Care Team Organization Name Specialty Phone Email Start Date End Da te [facility] 12/23/2021 10/04/19 24
--- OUTSIDE RECORDS SUMMARY | 2024-09-12 12:41 | XMS_ITS | Clinical Summary ---
Author Organization [facility] [place] [address] Phone Care Team Providers Care Human Factors Specialist Name Role Phone Talisha Noble MD Primary Care Provider [phone] Allergies Active Allergy Reactions Criticality Noted Date Comments Oxycodone-Acetaminophen 04/10/2020 Penicillins 04/10/2020 Titanium 09/28/2012 Reaction to wilber placed years ago on the right knee and was subsequently removed Medications B complex tablet Take by mouth. Active ubrogepant (Ubrelvy) 100 mg tablet Take by mouth. Active aspirin 81 mg EC tablet Take by mouth. Active levothyroxine (SYNTHROID, LEVOTHROID) 137 mcg tablet Take 1 tablet (137 mcg total) by mouth 1 (one) time each day before breakfast. Active hydrOXYzine HCL (ATARAX) 25 mg tablet Take 1 tablet (25 mg total) by mouth at bedtime as needed. 03/07/2021 Active citalopram (CeleXA) 20 mg tablet Take 1 tablet (20 mg total) by mouth 1 (one) time each day. 02/04/2021 Active atorvastatin (LIPITOR) 40 mg tablet Take 1 tablet (40 mg total) by mouth 1 (one) time each day. 90 tablet 11 06/30/2024 Active losartan (COZAAR) 50 mg tablet Take 1.5 tablets (75 mg total) by mouth 1 (one) time each day. 135 tablet 3 06/30/2024 Active Active Problems Problem Noted Date Diagnosed Date Hyperlipidemia 06/30/2024 HTN (hypertension), benign 06/30/2024 Cyst of prostate 03/10/2021 Lower abdominal pain 10/30/2020 Weight loss 10/30/[address] scan, chest 04/29/2020 Anti-cardiolipin antibody positive 04/29/2020 Anxiety about health 04/10/2020 Thyroid cancer (CMS/HCC V24, CMS/HCC V28) 2020 Elevated PSA 01/30/2020 Encounters Date Type Department Care Team Description 06/30/2024 8:30 AM EDT Office Visit Internal Medicine - [address] [place] [address] Talisha Noble MD Adult general medical examination (Primary Dx); Thyroid cancer (CMS/HCC V24, CMS/HCC V28); HTN (hypertension), benign; Hyperlipidemia, unspecified hyperlipidemia type from Last 3 Months Surgical History Surgery Date Site/Laterality Comments KNEE SURGERY 1997 PROCEDURE: HISTORICAL KNEE SURGERY; COMMENT: acl OTHER SURGICAL HISTORY PROCEDURE: ---- OTHER ----; COMMENT: abdominal surgery as an infant (pyloric stenosis?) COLONOSCOPY 2012 PROCEDURE: [place] COLONOSCOPY FLX DX W/COLLJ SPEC WHEN PFRMD; COMMENT: Normal, no polyps. ROTATOR CUFF REPAIR 2014 Right PROCEDURE: HISTORICAL ROTATOR CUFF REPAIR OTHER SURGICAL HISTORY 05/30/2020 Left PROCEDURE: HISTORY OTHER; COMMENT: hemithyroidectomy w/ isthmusectomy Dr. 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 DX:Papillary thyroid carcin tatianna (HCC); COMMENT: S/p left hemithyroidectomy w/ isthmusectomy [...] Sign Reading Time Taken Comments Blood Pressure 138/88 06/30/2024 8:27 AM EDT Pulse 70 06/30/2024 8:27 AM EDT Temperature 36.6 C (97.8 F) 06/30/2024 8:27 AM EDT Respiratory Rate - - Oxygen Saturation 97% 06/30/2024 8:27 AM EDT Inhaled Oxygen Concentration - - Weight 96.2 kg (212 lb) 06/30/2024 8:27 AM EDT Height 177.8 cm (5' 10 ) 06/12/2024 10:34 AM EDT Body Mass Index 30.42 06/12/2024 10:34 AM EDT Plan of Treatment Upcoming Encounters Date Type Department Care Team (Late st Contact Info) Description 01/03/2025 9:30 AM EST Office Visit Internal Medicine [facility] [address] [phone] Talisha Noble MD [address] [phone] 01/24/2025 10:00 AM EST Office Visit [facility] Hematology Oncology [address] [place] [phone] Jeanine Zuñiga MD [address] [place] [phone] Health Maintenance Due Date Last Done Comments Pneumococcal Vaccine: 50+ Years (1 of 2 - PCV) 05/24/1979 Zoster Vaccines (1 of 2) 05/24/1979 Colorectal Cancer Screening: Colonoscopy 01/24/2022 HIV Screening 01/24/2022 Hepatitis C Screening 01/24/2022 Social Influencers of Health Screening 01/24/2022 DTaP,Tdap,and Td Vaccines (3 - Td or Tdap) 09/28/2022 09/28/2012, 01/04/2006 COVID-19 Vaccine (4 - season) 2023 02/25/2021, 07/24/2020, 06/26/2020 Influenza Vaccine (#1) 2024 , 12/04/2022, 12/25/2021, Additional history exists Hypertension/CHF/CAD Annual BMP Blood Test 06/23/2025 06/23/2024, 12/09/2023, 12/25/2019, Additional history exists Cholesterol Screening (Lipid Panel) 06/23/2029 06/23/2024, 12/09/2023, 12/25/2019, Additional history exists RSV Immunization Adult Patients (1 - 1-dose 75+ series) 05/24/2035 Depression Screening Completed 06/23/2024 HIB Vaccines Aged Out No longer eligi [...] age to complete this topic Meningococcal B Vaccine Aged Out No l onger eligible based on patient's age to complete this topic RSV Immunization Patients Under 20 months Aged Out No longer eligible based on patient's age to complete this topic Varicella Vaccines Aged Out No longer eligible based on patient's age to complete this topic Procedures Procedure Name Priority Date/Time Associated Diagnosis Comments VITAMIN D 25 HYDROXY Routine 06/23/2024 8:04 AM EDT Vitamin D deficiency Adult general medical examination Anxiety about health Weight loss Other fatigue VITAMIN B12 Routine 06/23/2024 8:04 AM EDT Vitamin D deficiency Adult general medical examination Anxiety about health Weight loss Other fatigue COMPLETE BLOOD COUNT Routine 06/23/2024 8:04 AM EDT Vitamin D deficiency Adult general medical examination Anxiety about health Weight loss Other fatigue LIPID PANEL WITH REFLEX TO DIRECT LDL Routine 06/23/2024 8:04 AM EDT Vitamin D deficiency Adult general medical examination Anxiety about health Weight loss Other fatigue COMPREHENSIVE METABOLIC PANEL Routine 06/23/2024 8:04 AM EDT Vitamin D deficiency Adult general medical examination Anxiety about health Weight loss Other fatigue HEMOGLOBIN A1C Routine 06/23/2024 8:04 AM EDT Vitamin D deficiency Adult general medical examination Anxiety about health Weight loss Other fatigue from Last 3 Months Results * Lipid panel with reflex to direct LDL (06/23/2024 8:04 AM EDT) Cholesterol 96 0 - 200 mg/dL LAB CHEMISTRY METHOD 06/23/2024 10:53 AM [facility] Triglycerides 52 0 - 150 mg/dL LAB CHEMISTRY METHOD 06/23/2024 10:53 AM [facility] HDL 58 >=40 mg/dL LAB CHEMISTRY METHOD 06/23/2024 10:53 AM [facility] LDL Calculated 28 0 - 100 mg/dL LAB CHEMISTRY METHOD 06/23/2024 10:53 AM [facility] VLDL Cholesterol Jeff 10.4 mg/dL LAB CHEMISTRY METHOD 06/23/2024 10:53 AM [facility] Non HDL Chol. (LDL+VLDL) 38 <145 mg/dL LAB CHEMISTRY METHOD 06/23/2024 10:53 AM [facility] Chol/HDL Ratio 1.7 0.0 - 4.4 LAB CHEMISTRY METHOD 06/23/2024 10:53 AM EDT [facility] Blood Venous blood specimen / Unknown Venipuncture / Unknown 06/23/2024 8:04 AM EDT 06/23/2024 8:04 AM EDT Talisha Noble MD LAB BLOOD ORDERABLES Final Res ult [facility] [address] [place] [address], [place] [phone] * (ABNORMAL) Vitamin D 25 hydroxy (06/23/2024 8:04 AM EDT) Vit D, 25-Hydroxy 24.2(L) 30.0 - 80.0 ng/mL LAB CHEMISTRY METHOD 06/23/2024 12:48 PM EDT [facility] Blood Venous blood specimen / Unknown Venipuncture / Unknown 06/23/2024 8:04 AM EDT 06/23/2024 8:04 AM EDT us Talisha Noble MD LAB BLOOD ORDERABLES Final Res ult Performing Organization Address City/[facility]/ZIP Co de Phone Number [facility] [address] [place] [address], [place] [phone] * (ABNORMAL) Complete blood count (06/23/2024 8:04 AM EDT) WBC 4.9 4.8 - 10.8 K/[facility] LAB HEMETOLOGY METHOD 06/23/2024 10:16 AM EDT [facility] RBC 4.40(L) 4.50 - 5.50 M/[facility] LAB HEMETOLOGY METHOD 06/23/2024 10:16 AM EDT [facility] Hemoglobin 13.8 13.5 - 17.5 g/dL LAB HEMETOLOGY METHOD 06/23/2024 10:16 AM EDT [facility] Hematocrit 42.6 42.0 - 54.0 % LAB HEMETOLOGY METHOD 06/23/2024 10:16 AM EDT [facility] MCV 96.6 79.0 - 98.0 FL LAB HEMETOLOGY METHOD 06/23/2024 10:16 AM EDT [facility] MCH 31.3 27.0 - 32.0 pcg LAB HEMETOLOGY METHOD 06/23/2024 10:16 AM EDT [facility] MCHC 32.4 32.0 - 37.0 g/dL LAB HEMETOLOGY METHOD 06/23/2024 10:16 AM EDT [facility] RDW 12.6 11.0 - 15.0 % LAB HEMETOLOGY METHOD 06/23/2024 10:16 AM T [facility] Platelets 220 130 - 400 K/mcL LAB HEMETOLOGY METHOD 06/23/2024 10:16 AM EDT [facility] MPV 9.5 7.0 - 11.0 FL LAB HEMETOLOGY METHOD 06/23/2024 10:16 AM T [facility] NRBC 0.0 <1.0 % LAB HEMETOLOGY METHOD 06/23/2024 10:16 AM T [facility] NRBC Absolute 0.00 <0.10 K/mcL LAB HEMETOLOGY METHOD 06/23/2024 10:16 AM T [facility] Blood Venous blood specimen / Unknown Venipuncture / Unknown 06/23/2024 8:04 AM EDT 06/23/2024 8:04 AM EDT us Talisha Noble MD LAB BLOOD ORDERABLES Final Res ult [facility] [address] [place] [address], * Hemoglobin A1c (06/23/2024 8:04 AM EDT) [facility] Hemoglobin A1C 5.6 <6.5 % LAB CHEMISTRY METHOD 06/23/2024 11:10 AM EDT [facility] Mean Bld Glu Estim. 114 mg/dL LAB CHEMISTRY METHOD 06/23/2024 11:10 AM EDT [facility] Blood Venous blood specimen / Unknown Venipuncture / Unknown 06/23/2024 8:04 AM EDT 06/23/2024 8:04 AM EDT Talisha Noble MD LAB BLOOD ORDERABLES Final Res ult Performing Organization Address [facility]/ZIP Co de Phone Number [facility] [address] [place] [address], [place] [phone] * (ABNORMAL) Vitamin B12 (06/23/2024 8:04 AM EDT) [facility] Vitamin B-12 1,257(H) 250 - 900 pcg/mL LAB CHEMISTRY METHOD 06/23/2024 10:53 AM EDT [facility] Blood Venous blood specimen / Unknown Venipuncture / Unknown 06/23/2024 8:04 AM EDT 06/23/2024 8:04 AM EDT us Talisha Noble MD LAB BLOOD ORDERABLES Final Res ult Performing Organization Address City/[facility]/ZIP Co de Phone Number [facility] [address] [place] [address], [place] [phone] * (ABNORMAL) Comprehensive metabolic panel (06/23/2024 8:04 AM EDT) [facility] Sodium 142 133 - 145 mmol/L LAB CHEMISTRY METHOD 06/23/2024 10:53 AM EDT [facility] Potassium 4.4 3.5 - 5.5 mmol/L LAB CHEMISTRY METHOD 06/23/2024 10:53 AM EDT [facility] Chloride 109 96 - 110 mmol/L LAB CHEMISTRY METHOD 06/23/2024 10:53 AM [facility] CO2 30 21 - 32 mmol/L LAB CHEMISTRY METHOD 06/23/2024 10:53 AM [facility] Anion Gap 3 3 - 11 LAB CHEMISTRY METHOD 06/23/2024 10:53 AM [facility] Glucose 89 70 - 100 mg/dL LAB CHEMISTRY METHOD 06/23/2024 10:53 AM [facility] BUN 15 5 - 25 mg/dL LAB CHEMISTRY METHOD 06/23/2024 10:53 AM [facility] Creatinine 0.65(L) 0.70 - 1.30 mg/dL LAB CHEMISTRY METHOD 06/23/2024 10:53 AM [facility] eGFR 105 >=60 mL/min/1. 73m2 LAB CHEMISTRY METHOD 06/23/2024 10:53 AM [facility] Comment:Calculation based on the Chronic Kidney Disease Epidemiology Collaboration (CKD-EPI) equation refit without adjustment for race. BUN/Creatinine Ratio 23.1 LAB CHEMISTRY METHOD 06/23/2024 10:53 AM [facility] Calcium 8.6 8.5 - 10.5 mg/dL LAB CHEMISTRY METHOD 06/23/2024 10:53 AM [facility] AST (SGOT) 19 10 - 42 unit/L LAB CHEMISTRY METHOD 06/23/2024 10:53 AM [facility] ALT (SGPT) 25 10 - 60 unit/L LAB CHEMISTRY METHOD 06/23/2024 10:53 AM [facility] Alkaline Phosphatase 60 42 - 121 unit/L LAB CHEMISTRY METHOD 06/23/2024 10:53 AM [facility] Total Protein 6.7 6.0 - 8.0 g/dL LAB CHEMISTRY METHOD 06/23/2024 10:53 AM [facility] Albumin 3.8 3.2 - 5.0 g/dL LAB CHEMISTRY METHOD 06/23/2024 10:53 AM EDT [facility] Total Bilirubin 1.1 0.0 - 1.4 mg/dL LAB CHEMISTRY METHOD 06/23/2024 10:53 AM EDT [facility] Blood Venous blood specimen / Unknown Venipuncture / Unknown 06/23/2024 8:04 AM EDT 06/23/2024 8:04 AM EDT us Talisha Noble MD LAB BLOOD ORDERABLES Final Res ult [facility] [address] [place] [address], from Last 3 Months Insurance [facility] Care Teams Human Factors Specialist Relationship Specialty Start Date End Date Talisha Noble MD [address] [phone] PCP - General Internal Medicine 12/29/23
--- OUTSIDE RECORDS SUMMARY | 2024-09-12 12:41 | XMS_ITS | Clinical Summary ---
Author Organization [facility] Address [address] [place] [address] Care Team Providers Care Medical Investigator Name Role Phone Unavailable Primary Care Provider [...] - 2023-2 5 season) 2023 Influenza (#1) 2024 RSV (1 - 1-dose 75+ series) 05/24/2035 HPV Vaccine (No Doses Required) Completed Hep A Aged Out No longer eligi [...]
== END 2024-09-12 12:13 | disposition home or self-care (01) ==
LOC: HO.HSMS 11:28
PROVIDERS: PCP Internal Medicine; Visit Provider Psychiatry & Neurology Neurology
DX: F07.81 Postconcussional syndrome (principal); G44.329 Chronic post-traumatic headache, not intractable; G43.009 Migraine without aura, not intractable, without status migrainosus; F43.10 Post-traumatic stress disorder, unspecified
CPT/HCPCS: 99214; G2211

== ENCOUNTER → 2024-09-12 11:27 | Outpatient (BNVA) | payer OTHER, SELFPAY | PROVIDERS: PCP Internal Medicine; Visit Provider Psychiatry & Neurology Neurology | DX: G44.329 Chronic post-traumatic headache, not intractable (principal); F07.81 Postconcussional syndrome; F43.10 Post-traumatic stress disorder, unspecified | CPT/HCPCS: 99212 ==